=== PATIENT | male | born 1985 | race Caucasian/White ===

== ENCOUNTER 2021-02-10 09:30 | Inpatient (IN) | payer OTHER ==
[~2021-02-10] VITALS: Ht 175.3 cm; Wt 101.6 kg
[2021-02-10 10:44] LABS: HEMOGLOBIN 14.9 gm/dl (14.0-17.5); RED BLOOD COUNT 4.89 M/UL (4.20-5.50)
[2021-02-10 10:59] LABS: BUN/CREATININE RATIO 10 (0-10)
[2021-02-10] MEDS ORDERED: CEPHALEXIN500 MG PO (15:22)
[2021-02-10] MEDS ORDERED: SULFAMETHOXAZO1 EACH PO (15:23)
[2021-02-10] MEDS ORDERED: VRAYLAR1.5 MG PO (15:23)
[2021-02-11 06:38] LABS: HEMOGLOBIN 13.7 gm/dl (14.0-17.5); RED BLOOD COUNT 4.6 M/UL (4.20-5.50)
[2021-02-11 06:43] LABS: WHITE BLOOD COUNT 10.6 K/UL (4.5-11.0)
[2021-02-11 06:57] LABS: BUN/CREATININE RATIO 10 (0-10)
[2021-02-12 06:10] LABS: BUN/CREATININE RATIO 12 (0-10)
[2021-02-13 08:46] LABS: RED BLOOD COUNT 4.23 M/UL (4.20-5.50)
[2021-02-13] MEDS ORDERED: PHENERGAN 25 MG25 M1 PO (09:46)
[2021-02-13] MEDS ORDERED: MUPIROCIN22 GM TP (09:46)
[2021-02-13] MEDS ORDERED: VALTREX1000 MG PO (09:46)
[2021-02-13 09:58] LABS: BUN/CREATININE RATIO 11 (0-10)
== END 2021-02-13 11:27 | disposition home or self-care (01) | DRG 603 ==
LOC: ER1 09:30 → CDU 14:04 → MED SURG 4 17:26
PROVIDERS: Family Medicine; Physician Assistant Medical; ADMIT Internal Medicine Infectious Disease
DX: L03.211 Cellulitis of face (principal); Z20.822 Contact with and (suspected) exposure to COVID-19; B02.8 Zoster with other complications; K12.1 Other forms of stomatitis; F41.9 Anxiety disorder, unspecified; Z90.49 Acquired absence of other specified parts of digestive tract
CPT/HCPCS: 36415; 70487; 80048; 80053; 80202; 81001; 83036; 83605; 83735; 85025; 85027; 85652; 86140; 87040; 87081; 96374; 96375; 99284; J0696; J1170; J2405; J2543; J2550; J3370; J7070; J7120; Q9967; U0002

== ENCOUNTER 2021-03-04 00:33 | Emergency (ER) | payer OTHER ==
[~2021-03-04 00:33] MED LIST: CEPHALEXIN500 MG PO; MUPIROCIN22 GM TP; PHENERGAN 25 MG25 M1 PO; SULFAMETHOXAZO1 EACH PO; VALTREX1000 MG PO; VRAYLAR1.5 MG PO
[2021-03-04 02:49] LABS: HEMOGLOBIN 15.5 gm/dl (14.0-17.5); RED BLOOD COUNT 4.97 M/UL (4.20-5.50); WHITE BLOOD COUNT 6.2 K/UL (4.5-11.0)
[2021-03-04 03:21] LABS: BUN/CREATININE RATIO 10 (0-10)
[2021-03-04] MEDS ORDERED: LODINE CAP 300300 MG PO (05:19)
[2021-03-04] MEDS ORDERED: PROVENTIL HFA6.7 GM INH (05:19)
[2021-03-04] MEDS ORDERED: OMNICEF 300 MG300 MG PO (05:19)
== END 2021-03-04 05:30 | disposition home or self-care (01) ==
LOC: ER1 00:33
PROVIDERS: Physician Assistant
DX: J18.9 Pneumonia, unspecified organism (principal); R07.89 Other chest pain; Z20.822 Contact with and (suspected) exposure to COVID-19; F41.9 Anxiety disorder, unspecified; Z90.49 Acquired absence of other specified parts of digestive tract
CPT/HCPCS: 71045; 80053; 82550; 82553; 83874; 83880; 84484; 85025; 85379; 85610; 85730; 93005; 99285; Q9967; U0002

== ENCOUNTER 2021-08-07 14:01 | Emergency (ER) | payer OTHER ==
[~2021-08-07 14:01] MED LIST changes: +LODINE CAP 300300 MG PO; +OMNICEF 300 MG300 MG PO; +PROVENTIL HFA6.7 GM INH
[2021-08-07 15:25] LABS: HEMOGLOBIN 14.2 gm/dl (14.0-17.5); RED BLOOD COUNT 4.68 M/UL (4.20-5.50); WHITE BLOOD COUNT 8.9 K/UL (4.5-11.0)
[2021-08-07 15:56] LABS: BUN/CREATININE RATIO 18 (0-10)
[2021-08-07] MEDS ORDERED: ENDOCET 5-3251 EACH PO (17:24)
[2021-08-07] MEDS ORDERED: ZOFRAN ODT 4 MG4 MG SL (17:24)
[2021-08-07] MEDS ORDERED: HYDROCODON-ACE1 EAC4 PO (19:47)
== END 2021-08-07 21:05 | disposition home or self-care (01) ==
LOC: ER1 14:01
PROVIDERS: Emergency Medicine
DX: N13.2 Hydronephrosis with renal and ureteral calculous obstruction (principal)
CPT/HCPCS: 71046; 80053; 81001; 83690; 85025; 96374; 96375; 99284; J1885; J2270; J2405; Q9967

== ENCOUNTER 2021-08-10 18:49 | Emergency (ER) | payer OTHER ==
[~2021-08-10 18:49] MED LIST changes: +ENDOCET 5-3251 EACH PO; +HYDROCODON-ACE1 EAC4 PO; +ZOFRAN ODT 4 MG4 MG SL
[2021-08-10 23:19] LABS: HEMOGLOBIN 13.6 gm/dl (14.0-17.5); RED BLOOD COUNT 4.48 M/UL (4.20-5.50); WHITE BLOOD COUNT 4.7 K/UL (4.5-11.0)
[2021-08-11] MEDS ORDERED: ZOFRAN ODT 4 MG4 MG PO (02:32)
== END 2021-08-11 02:28 | disposition home or self-care (01) ==
LOC: ER1 18:49
PROVIDERS: Physician Assistant
DX: N13.2 Hydronephrosis with renal and ureteral calculous obstruction (principal); N17.9 Acute kidney failure, unspecified
CPT/HCPCS: 36415; 80053; 81001; 82150; 83605; 83690; 85025; 87086; 96361; 96374; 96375; 99284; J1885; J2405

== ENCOUNTER → 2021-09-24 | Outpatient (CLI) | payer OTHER ==
[~2021-09-24] MED LIST changes: +ZOFRAN ODT 4 MG4 MG PO
== END ==
LOC: KOH-I 15:43
DX: M25.522 Pain in left elbow (principal); M25.422 Effusion, left elbow
CPT/HCPCS: 73080